=== PATIENT | female | born 1950 | race African-American/Black ===

== ENCOUNTER 2016-11-04 12:13 | Emergency (ER) | payer SELFPAY ==
--- NOTE | 2016-11-04 12:21 | ER Document Report ---
ED Medical Screen (RME) - General Stated Complaint: NOSE BLEED Notes: patient states she had a nosebleed one hour ago, has stopped. she does admit to a headache that started today has a h/o HTN but she is uninsured and does not see a PCP I have greeted and performed a rapid initial assessment of this patient. A comprehensive ED assessment and evaluation of the patient, analysis of test results and completion of the medical decision making process will be conducted by additional ED providers. - Related Data Allergies/Adverse Reactions: acetaminophen [From Tylenol] Allergy (Verified 11/04/16 12:16) Past Medical History - Past Medical History Cardiac Medical History: Reports: Hx Hypertension - Immunizations Hx Diphtheria, Pertussis, Tetanus Vaccination: No
[2016-11-04] MEDS ORDERED: IBUPROFEN 800 MG TABLET PO ONE (13:11)
--- NOTE | 2016-11-04 13:16 | ER Document Report ---
HPI - HPI Patient complains to provider of: nose bleed Onset: This morning Onset/Duration: Sudden Pain Level: 5 Context: Pt presents to the ED with c/o nose bleed pto. She reports she has had this in the past. Once she had to go the ED four times in one day because it would not stop bleeding. She denies injury. Patient reports she sleeps with the window open. Does not use a humidifier. Pt bp elevated. She reports hx of High blood pressure, untreated. She does not have insurance. She reports pressure headache now, no medications taken. Denies f/n/v/d. Patient also admits smoking and drinking tequila weekly. No active nose bleed now. Associated Symptoms: Headache Exacerbated by: Denies Relieved by: Denies Similar symptoms previously: Yes Recently seen / treated by doctor: No - DERM Skin Color: Normal Past Medical History - General Information source: Patient Last Menstrual Period: years- menopause - Social History Smoking Status: Current Every Day Smoker Cigarette use (# per day): Yes - mika Chew tobacco use (# tins/day): No Frequency of alcohol use: Social Drug Abuse: None Occupation: none Lives with: Family Family History: Reviewed & Not Pertinent Patient has suicidal ideation: No Patient has homicidal ideation: No - Past Medical History Cardiac Medical History: Reports: Hx Hypertension Renal/ Medical History: Denies: Hx Peritoneal Dialysis Surgical Hx: Negative - Immunizations Hx Diphtheria, Pertussis, Tetanus Vaccination: No Vertical Provider Document - CONSTITUTIONAL Agree With Documented VS: Yes Exam Limitations: No Limitations General Appearance: WD/WN, No Apparent Distress - INFECTION CONTROL TRAVEL OUTSIDE OF THE [place] IN LAST 30 DAYS: No - HEENT HEENT: Atraumatic, Normocephalic. negative: Conjuctival Injection, Pharyngeal Exudate, Pharyngeal Tenderness, Pharyngeal Erythema, Tympanic Membrane Red, Tympanic Membrane Bulging Notes: right nare with erythema,no active bleeding, no septal hematoma - NECK Neck: Normal Inspection, Supple. negative: Lymphadenopathy-Left, Lymphadenopathy-Right - RESPIRATORY Respiratory: Breath Sounds Normal, No Respiratory Distress O2 Sat by Pulse Oximetry: 96 - CARDIOVASCULAR Cardiovascular: Regular Rate, Regular Rhythm - GI/ABDOMEN Gastrointestinal: Abdomen Soft - MUSCULOSKELETAL/EXTREMETIES Musculoskeletal/Extremeties: ERMA RIZZO - NEURO Level of Consciousness: Awake, Alert, Appropriate Motor/Sensory: No Motor Deficit - DERM Integumentary: Warm, Dry Course - Re-evaluation Re-evalutation: 11/04/16 13:31 Pt instructed on care of nose bleeds. I spent over 15 minutes discussing HTN. Pt was instructed on the [facility], low sodium diet, exercise, quit smoking. Pt was also instructed on the risks of high blood pressure (stroke , [place], etc.) patient verbalized understanding to all instructions. Patient reports she will follow-up with [facility]. Patient also reported that she will quit adding extra seasoning to her foods. - Vital Signs Vital signs: Temp Pulse Resp BP Pulse Ox 98.4 F 88 16 189/92 H 96 11/04/16 12:17 11/04/16 12:17 11/04/16 12:17 11/04/16 12:17 11/04/16 12:17 Discharge - Discharge Clinical Impression: Bleeding nose, Elevated blood pressure reading Condition: Stable Disposition: HOME, SELF-CARE Instructions: High Blood Pressure ([facility]), [facility], Stop Smoking ([facility]) Additional Instructions: *You have been evaluated for nose bleed, elevated blood pressure *Monitor your diet- low sodium, quit smoking ,exercise *Do not blow your nose, humidified air *Take motrin as indicated *Follow up with the [facility] within one week *Return to ED for worsening condition, changes, needs Forms: Smoking Cessation Education, Elevated Blood Pressure
[2016-11-04 13:23] VITALS: BP 192/98
== END 2016-11-04 13:34 | disposition home or self-care (01) ==
LOC: ER 12:13
DX: R04.0 Epistaxis (principal); R03.0 Elevated blood-pressure reading, without diagnosis of hypertension; F17.210 Nicotine dependence, cigarettes, uncomplicated
CPT/HCPCS: 99283

== ENCOUNTER → 2016-11-28 | Outpatient (CLI) | payer OTHER | LOC: WI 14:49 | DX: Z12.31 Encounter for screening mammogram for malignant neoplasm of breast (principal) | CPT/HCPCS: 77067; G0202 ==

== ENCOUNTER 2017-02-13 10:21 | Emergency (ER) | payer SELFPAY ==
[2017-02-13 10:28] VITALS: BP 190/95
[2017-02-13] MEDS ORDERED: PREDNISONE 20 MG TABLET PO ONE (10:47)
[2017-02-13] MEDS ORDERED: DIPHENHYDRAMINE HCL 25 MG CAPSULE PO ONE (10:47)
--- NOTE | 2017-02-13 10:51 | ER Document Report ---
HPI - HPI Patient complains to provider of: skin rash Onset: Other - 7 months Onset/Duration: Waxing and waning Quality of pain: No pain Pain Level: Denies Context: Patient presents complaining of skin rash to face and neck area off and on for the past 7 months. Patient states rash has become constant for the past month. Patient became concerned about the skin rash as she has an upcoming family reunion. Patient denies any new detergents or medications. Patient does states she has been using various topical [id number] medications such as antibiotic cream and attempts to treat her skin rash. Associated Symptoms: Other - skin rash Exacerbated by: Denies Relieved by: Denies Similar symptoms previously: Yes Recently seen / treated by doctor: No - ROS ROS below otherwise negative: Yes Systems Reviewed and Negative: Yes All other systems reviewed and negative - CONSTITUTIONAL Constitutional: DENIES: Fever, Chills - EENT EENT: DENIES: Eye problems - NEURO Neurology: DENIES: Headache - GASTROINTESTINAL Gastrointestinal: DENIES: Nausea, Patient vomiting - DERM Skin Color: Normal Skin Problems: Rash Past Medical History - General Information source: Patient - Social History Smoking Status: Current Every Day Smoker Frequency of alcohol use: Occasional Drug Abuse: None Occupation: none Family History: Reviewed & Not Pertinent Patient has suicidal ideation: No Patient has homicidal ideation: No - Past Medical History Cardiac Medical History: Reports: Hx Hypertension Renal/ Medical History: Denies: Hx Peritoneal Dialysis Surgical Hx: Negative - Immunizations Hx Diphtheria, Pertussis, Tetanus Vaccination: No Vertical Provider Document - CONSTITUTIONAL Agree With Documented VS: Yes Exam Limitations: No Limitations General Appearance: WD/WN, No Apparent Distress - INFECTION CONTROL TRAVEL OUTSIDE OF THE [place] IN LAST 30 DAYS: No - HEENT HEENT: Atraumatic, Normal ENT Exam, Normocephalic Notes: No angioedema - NECK Neck: Normal Inspection, Supple. negative: Lymphadenopathy-Left, Lymphadenopathy-Right - RESPIRATORY Respiratory: Breath Sounds Normal, No Respiratory Distress, Chest Non-Tender O2 Sat by Pulse Oximetry: 98 - CARDIOVASCULAR Cardiovascular: Regular Rate, Regular Rhythm, No Murmur - MUSCULOSKELETAL/EXTREMETIES Musculoskeletal/Extremeties: MAEW - NEURO Level of Consciousness: Awake, Alert, Appropriate Motor/Sensory: No Motor Deficit - DERM Integumentary: Warm, Dry, Rash - Erythematous maculopapular rash distributed to face, neck and upper chest and back area. Course - Re-evaluation Re-evalutation: 02/13/17 10:49 The patient has been informed that they may have pre-hypertension or hypertension based on a blood pressure reading in the emergency department. I recommend that patient call the primary care provider listed on their discharge instructions or a physician of their choice by this week to arrange follow-up for further evaluation of possible pre-hypertension her hypertension. - Vital Signs Vital signs: Temp Pulse Resp BP Pulse Ox 98.1 F 102 H 16 190/95 H 98 02/13/17 10:25 02/13/17 10:25 02/13/17 10:25 02/13/17 10:25 02/13/17 10:25 Discharge - Discharge Clinical Impression: Hx of essential hypertension, Skin rash Condition: Stable Disposition: HOME, SELF-CARE Instructions: Use of Diphenhydramine, Steroid Medication Additional Instructions: Return immediately for any new or worsening symptoms Followup with your primary care provider, call tomorrow to make a followup appointment Follow-up with a steward/stewardess third for further evaluation of facial rash Follow-up with your primary doctor to recheck your blood pressure next week Prescriptions: Prednisone [Deltasone 20 mg Tablet] 3 tab PO DAILY 4 Days Forms: Elevated Blood Pressure Referrals: [facility] [Provider Group] - Follow up as needed STEFAN WILLAMS DO [ACTIVE STAFF] - Follow up in 3-5 days
== END 2017-02-13 11:00 | disposition home or self-care (01) ==
LOC: ER 10:21
DX: R21 Rash and other nonspecific skin eruption (principal); I10 Essential (primary) hypertension; F17.200 Nicotine dependence, unspecified, uncomplicated
CPT/HCPCS: 99282; J7512

== ENCOUNTER 2017-05-08 13:02 | Emergency (ER) | payer MEDICARE ==
[2017-05-08 13:22] VITALS: BP 183/104
[2017-05-08] MEDS ORDERED: TETRACAINE HCL 0.5% OPH SOLN 2 ML OS ONE (14:03)
[2017-05-08] MEDS ORDERED: POLYMYXIN B SULFATE/TMP OPH SOLN (10 ML/ER DISP) OS PRN (14:24)
[2017-05-08] MEDS ORDERED: IBUPROFEN 800 MG TABLET PO ONE (14:24)
--- NOTE | 2017-05-08 14:41 | ER Document Report ---
HPI - HPI Onset: Yesterday Onset/Duration: Gradual Quality of pain: Burning Severity: Moderate Pain Level: 4 Context: Patient states her left eye started out itching yesterday and she has been rubbing it. I is now red and has clear drainage. Patient does not wear contacts. Patient states vision is normal. Exacerbated by: Denies Relieved by: Denies Similar symptoms previously: No Recently seen / treated by doctor: No - ROS ROS below otherwise negative: Yes Systems Reviewed and Negative: Yes All other systems reviewed and negative - CONSTITUTIONAL Constitutional: DENIES: Fever - EENT EENT: REPORTS: Eye problems - Left. DENIES: Congestion - NEURO Neurology: REPORTS: Headache - CARDIOVASCULAR Cardiovascular: DENIES: Chest pain - RESPIRATORY Respiratory: DENIES: Trouble Breathing - GASTROINTESTINAL Gastrointestinal: DENIES: Abdominal Pain - REPRODUCTIVE Reproductive: DENIES: : - MUSCULOSKELETAL Musculoskeletal: DENIES: Extremity pain - DERM Skin Color: Normal Skin Problems: None Past Medical History - General Information source: Patient - Social History Smoking Status: Current Every Day Smoker Chew tobacco use (# tins/day): No Frequency of alcohol use: Occasional Drug Abuse: None Lives with: Spouse/Significant other Family History: Reviewed & Not Pertinent Patient has suicidal ideation: No Patient has homicidal ideation: No - Past Medical History Cardiac Medical History: Reports: Hx Hypertension Past Surgical History: Reports: Hx Herniorrhaphy - Immunizations Hx Diphtheria, Pertussis, Tetanus Vaccination: No Vertical Provider Document - CONSTITUTIONAL Agree With Documented VS: Yes Exam Limitations: No Limitations General Appearance: WD/WN, No Apparent Distress - INFECTION CONTROL TRAVEL OUTSIDE OF THE [place] IN LAST 30 DAYS: No - HEENT HEENT: Atraumatic, Conjuctival Injection, Normal ENT Exam, Normocephalic, PERRLA Notes: Left eye injected without drainage or tearing noted. Small amount of colored drainage noted to right inner eye, conjunctivae clear. - NECK Neck: Normal Inspection - RESPIRATORY Respiratory: Breath Sounds Normal, No Respiratory Distress O2 Sat by Pulse Oximetry: 98 - CARDIOVASCULAR Cardiovascular: Regular Rate, Regular Rhythm - MUSCULOSKELETAL/EXTREMETIES Musculoskeletal/Extremeties: MAEW - NEURO Level of Consciousness: Awake, Alert, Appropriate - DERM Integumentary: Warm, Dry Course - Re-evaluation Re-evalutation: 05/08/17 14:46 Left eye anesthetized with tetracaine. Fluorescein instilled, and was flushed with 5 mL's of normal saline. No foreign body or abrasion noted. Patient tolerated procedure well - Vital Signs Vital signs: Temp Pulse Resp BP Pulse Ox 97.9 F 76 16 183/104 H 98 05/08/17 13:21 05/08/17 13:21 05/08/17 13:21 05/08/17 13:21 05/08/17 13:21 Discharge - Discharge Clinical Impression: Conjunctivitis, left eye Qualifiers: Conjunctivitis type: unspecified Qualified Code(s): H10.9 - Unspecified conjunctivitis Condition: Good Disposition: HOME, SELF-CARE Instructions: Antibiotic Therapy ([facility]), Conjunctivitis ([facility]), Eyedrop Use ([facility]) Additional Instructions: Use drops as directed Do not rub eye Follow-up with your primary care doctor this week for recheck or your eye doctor Return if worsens and as needed
== END 2017-05-08 14:50 | disposition home or self-care (01) ==
LOC: ER 13:02
DX: H10.9 Unspecified conjunctivitis (principal); F17.200 Nicotine dependence, unspecified, uncomplicated; I10 Essential (primary) hypertension
CPT/HCPCS: 99283; A9270; J3490

== ENCOUNTER 2017-11-13 09:28 | Emergency (ER) | payer MEDICARE ==
[2017-11-13] MEDS ORDERED: FENTANYL CITRATE INJ/PF 100 MCG/2 ML AMPUL IV ONE (10:21)
--- NOTE | 2017-11-13 10:23 | ER Document Report ---
ED Medical Screen (RME) - General Chief Complaint: Shoulder Pain Stated Complaint: SHOULDER PAIN Time Seen by Provider: 11/13/17 10:15 Notes: RME DISCLOSURE I have seen this patient as part of a Rapid Medical Evaluation and, if applicable, placed any initially appropriate orders. The patient will be seen and fully evaluated, including a full history and physical exam, by a provider ( in Main ED or Fast Track) when a room becomes available. 67-year-old female PMH hypertension here with complaints of left shoulder pain that started 1-2 days ago. She also has some shortness of breath however states that it is the same shortness of breath she has had for years and is not any different. She denies any chest pain or discomfort. The shoulder pain is worse with deep breathing and also with moving her left upper extremity. She has no prior history of PE or DVT. She does not currently feel nervous or anxious and states that her heart rate is not usually high. EXAM Tachycardic low 100s TRAVEL OUTSIDE OF THE [place] IN LAST 30 DAYS: No - Related Data Allergies/Adverse Reactions: acetaminophen [From Tylenol] Allergy (Verified 11/13/17 09:30) Past Medical History - Past Medical History Cardiac Medical History: Reports: Hx Hypertension Renal/ Medical History: Denies: Hx Peritoneal Dialysis Past Surgical History: Reports: Hx Herniorrhaphy - Immunizations Hx Diphtheria, Pertussis, Tetanus Vaccination: No Physical Exam - Vital signs Vitals: Temp Pulse Resp BP Pulse Ox 98.4 F 103 H 20 157/84 H 97 11/13/17 09:34 11/13/17 09:34 11/13/17 09:34 11/13/17 09:34 11/13/17 09:34 Course - Vital Signs Vital signs: Temp Pulse Resp BP Pulse Ox 98.4 F 103 H 20 157/84 H 97 11/13/17 09:34 11/13/17 09:34 11/13/17 09:34 11/13/17 09:34 11/13/17 09:34
--- NOTE | 2017-11-13 11:33 | ER Document Report ---
ED Extremity Problem, Upper - General Mode of Arrival: Ambulatory Information source: Patient TRAVEL OUTSIDE OF THE [place] IN LAST 30 DAYS: No - General Chief Complaint: Shoulder Pain Stated Complaint: SHOULDER PAIN Time Seen by Provider: 11/13/17 10:15 Notes: Patient is a 67-year-old female that presents to the emergency department today with left shoulder pain for the last 2 days. Patient states she did not fall or have any trauma to her knowledge to cause this pain however she did "drink a lot of tequila" the night before this pain began. Patient has shoulder pain at rest but the pain is exacerbated with movement of left shoulder. Patient describes the pain as "sharp shooting" down her arm. Patient also mentions she has noticed left hand and wrist swelling but there is no pain associated with that. Patient denies any shortness of breath, history of NV/CVA, history of PE/ DVT, chest pain, leg swelling, or fall/trauma. (GRACIELA MANCILLA) - Related Data Allergies/Adverse Reactions: acetaminophen [From Tylenol] Allergy (Verified 11/17/17 17:07) Past Medical History - General Information source: Patient - Social History Smoking Status: Current Every Day Smoker Cigarette use (# per day): Yes Chew tobacco use (# tins/day): No Frequency of alcohol use: Occasional Drug Abuse: None Lives with: Family Family History: Reviewed & Not Pertinent Patient has suicidal ideation: No Patient has homicidal ideation: No - Past Medical History Cardiac Medical History: Reports: Hx Hypertension Past Surgical History: Reports: Hx Herniorrhaphy - Immunizations Hx Diphtheria, Pertussis, Tetanus Vaccination: No Review of Systems - Review of Systems Constitutional: No symptoms reported EENT: No symptoms reported Cardiovascular: denies: Chest pain Respiratory: denies: Cough, Short of breath Gastrointestinal: No symptoms reported Genitourinary: No symptoms reported Female Genitourinary: No symptoms reported Musculoskeletal: See HPI, Joint pain - left shoulder. denies: Leg swelling Skin: No symptoms reported Hematologic/Lymphatic: No symptoms reported Neurological/Psychological: No symptoms reported -: Yes All other systems reviewed and negative Physical Exam - Vital signs Vitals: Temp Pulse Resp BP Pulse Ox 98.4 F 103 H 20 157/84 H 97 11/13/17 09:34 11/13/17 09:34 11/13/17 09:34 11/13/17 09:34 11/13/17 09:34 - Notes Notes: Physical Exam: General: Alert, appears well. HEENT: Normocephalic. Atraumatic. PERRL. Extraocular movements intact. Oropharynx clear. Neck: Supple. Non-tender. Respiratory: No respiratory distress. Clear and equal breath sounds bilaterally. Cardiovascular: Regular rate and rhythm. Abdominal: Normal Inspection. Non-tender. No distension. Normal Bowel Sounds. Back: Non-tender. No deformity or step off. Extremities: Moves all four extremities. Upper extremities: Limited ROM of left shoulder secondary to pain. Pain with palpation of entire left shoulder joint, no crepitus. No hand/wrist tenderness with palpation. Mild left soft tissue swelling over left hand/wrist, no erythema. 2+ radial pulses. Normal axilla. Lower extremities: Normal inspection. No edema. Normal ROM. Neurological: Normal cognition. AAOx4. Normal speech. Psychological: Normal affect. Normal Mood. Skin: Warm. Dry. Normal color. (GRACIELA MANCILLA) Course - Re-evaluation Re-evalutation: 11/13/17 11:37 Patient well-appearing states that her pain began after awakening 2 days ago after having large amounts of alcohol at a green party the night before. Denies any traumas or falls. She does have very minor swelling of her distal right upper extremity compared to left otherwise no other concerning physical findings. Patient denies any chest pain or shortness of breath at this time. Her pain is reproducible with movement and it is better with rest. Due to the moderate soft tissue swelling will obtain ultrasound of right upper extremity to rule out any blood clots. No signs of infectious signs or symptoms. We will also perform an x-ray of right upper extremity shoulder as she has reproducible pain with palpation of the right upper extremity shoulder and with movement actively and passively. 11/13/17 13:27 Study negative for DVT with calcific tendinitis on shoulder x-ray otherwise no acute findings. Patient was discharged with sling for support and anti- inflammatories. Discussed range of motion exercises daily as well as follow-up with her primary care physician 1 week for reevaluation. Return precautions provided (LONG,NICKIE H) - Vital Signs Vital signs: Temp Pulse Resp BP Pulse Ox 98.0 F 107 H 17 149/81 H 97 11/13/17 13:38 11/13/17 13:38 11/13/17 13:38 11/13/17 13:38 11/13/17 13:38 Discharge - Discharge Clinical Impression: Shoulder pain, left Qualifiers: Chronicity: unspecified Qualified Code(s): M25.512 - Pain in left shoulder Condition: Good Disposition: HOME, SELF-CARE Instructions: Exercise Program for the Shoulder ([facility]), Shoulder Injury ([facility]), Sling to be Used ([facility]) Additional Instructions: Please follow-up with your primary care provider in 1 week for reevaluation. You may need physical therapy if symptoms are continuing. Prescriptions: Naproxen 500 mg PO BID PRN #30 tablet PRN Reason: Scribe Attestation: 11/19/17 07:01 I personally performed the services described in the documentation, reviewed and edited the documentation which was dictated to the scribe in my presence, and it accurately records my words and actions. (NICKIE ACHARYA) Scribe Documentation - Scribe Written by Rizwan:: Rizwan Drake, 11/13/2017 1133 acting as scribe for :: Gideon
[2017-11-13] MEDS ORDERED: KETOROLAC TROMETHAMINE 60 MG/2 ML SDV IM ONE (11:34)
--- NOTE | 2017-11-13 12:00 | RADIOLOGY REPORT (SQ) ---
EXAM DESCRIPTION: SHOULDER LEFT 2 OR MORE VIEWS COMPLETED DATE/TIME: 11/13/2017 11:45 am REASON FOR STUDY: shoulder pain COMPARISON: None. NUMBER OF VIEWS: Four views. TECHNIQUE: Internal rotation, external rotation, Y view and transscapular images acquired of the left shoulder. LIMITATIONS: None. FINDINGS: MINERALIZATION: Normal. BONES: No acute fracture or dislocation. No worrisome bone lesions. JOINTS: No dislocation. VISUALIZED LUNGS AND RIBS: No pneumothorax. No rib fracture. SOFT TISSUES: Calcification within the biceps tendon. OTHER: No other significant finding. IMPRESSION: No bony abnormality. Calcification within the biceps tendon is that may be associated w ith biceps tendonitis. TECHNICAL DOCUMENTATION: JOB ID: [id number] [employer]- All Rights Reserved Reading location - IP/workstation name: [email or web address]
--- NOTE | 2017-11-13 13:25 | EKG REPORT ---
SEVERITY:- BORDERLINE ECG - SINUS RHYTHM NONSPECIFIC ST-T CHANGES- INFERIOR LEADS : Confirmed by: Sylvain Daniel MD 13-Nov-2017 13:24:07
[2017-11-13 13:39] VITALS: BP 149/81
--- NOTE | 2017-11-13 13:58 | RADIOLOGY REPORT (SQ) ---
EXAM DESCRIPTION: VENOUS UNILATERAL UPPER COMPLETED DATE/TIME: 11/13/2017 1:22 pm REASON FOR STUDY: LUE SWELLING COMPARISON: None. TECHNIQUE: Dynamic and static reed scale and color images acquired of the left arm venous system. Se lected spectral images acquired with additional compression and augmentation maneuvers. The contralat eral subclavian vein and internal jugular vein were also imaged. Images stored on PACS. LIMITATIONS: None. FINDINGS: INTERNAL JUGULAR VEIN: Normal phasicity, compression, augmentation. No visualized echogeni c material on reed scale. No defects on color images. Comparison opposite side normal. SUBCLAVIAN VEIN: Normal compression, augmentation. No visualized echogenic material on reed scale. No defects on color images. AXILLARY VEIN: Normal compression, augmentation. No visualized echogenic material on reed scale. No d efects on color images. BRACHIAL VEIN: Normal compression, augmentation. No visualized echogenic material on reed scale. No d efects on color images. BASILIC VEIN: Normal compression, augmentation. No visualized echogenic material on reed scale. No de fects on color images. CEPHALIC VEIN: Normal compression, augmentation. No visualized echogenic material on reed scale. No d efects on color images. OTHER: No other significant finding. CONTRALATERAL SUBCLAVIAN VEIN AND INTERNAL JUGULAR VEIN: Normal phasicity, compression and augmentation. No visualized echogenic material on reed scale. No de fects on color images. IMPRESSION: NO EVIDENCE DVT OR SVT IN THE LEFT ARM. TECHNICAL DOCUMENTATION: JOB ID: [id number] [employer]- All Rights Reserved Reading location - IP/workstation name: [email or web address]
== END 2017-11-13 13:56 | disposition home or self-care (01) ==
LOC: ER 09:28
DX: M25.511 Pain in right shoulder (principal); M79.89 Other specified soft tissue disorders; I10 Essential (primary) hypertension; F17.210 Nicotine dependence, cigarettes, uncomplicated; Z88.6 Allergy status to analgesic agent
CPT/HCPCS: 93005; 99284; 96372; 93971; 73030; 93010; J1885

== ENCOUNTER 2017-11-17 16:57 | Emergency (ER) | payer MEDICARE ==
--- NOTE | 2017-11-17 17:10 | ER Document Report ---
HPI - HPI Patient complains to provider of: Left back and leg pain Onset: This morning Pain Level: 5 Context: 67-year-old HTN, smoker, female called the ambulance because of left back hip and leg pain that started this morning. She was seen in the emergency room several days ago and treated with Naprosyn for left shoulder pain which has improved. She thinks she has "a cold" in her leg. No Fever or chills. No chest pain or shortness of breath. No abdominal pain. No nausea vomiting or diarrhea. No injury. EKG order was put in by pivot nurse on accident. No saddle anesthesia. Associated Symptoms: None Exacerbated by: Movement Relieved by: Denies Similar symptoms previously: No Recently seen / treated by doctor: No - ROS ROS below otherwise negative: Yes Systems Reviewed and Negative: Yes All other systems reviewed and negative - REPRODUCTIVE Reproductive: DENIES: : Past Medical History - General Information source: Patient - Social History Smoking Status: Current Every Day Smoker Frequency of alcohol use: None Drug Abuse: None Lives with: Spouse/Significant other Family History: Reviewed & Not Pertinent - Past Medical History Cardiac Medical History: Reports: Hx Hypertension Renal/ Medical History: Denies: Hx Peritoneal Dialysis Past Surgical History: Reports: Hx Herniorrhaphy - Immunizations Hx Diphtheria, Pertussis, Tetanus Vaccination: No Vertical Provider Document - CONSTITUTIONAL Agree With Documented VS: Yes Exam Limitations: No Limitations Notes: dramatic non verbals about the pain, rocking, moaning, rubbing anterior left thigh - INFECTION CONTROL TRAVEL OUTSIDE OF THE [place] IN LAST 30 DAYS: No - HEENT HEENT: Normocephalic - NECK Neck: Supple - RESPIRATORY Respiratory: Breath Sounds Normal, No Respiratory Distress - CARDIOVASCULAR Cardiovascular: Regular Rate, Regular Rhythm Course - Re-evaluation Re-evalutation: 11/17/17 19:23 Lumbar and hip degenerative changes, no acute changes pt pain level almost 0. Will refer to pocket operator but she will need to go to [facility] again - Vital Signs Vital signs: Temp Pulse Resp BP Pulse Ox 98.3 F 88 16 184/93 H 99 11/17/17 17:02 11/17/17 17:02 11/17/17 17:02 11/17/17 17:02 11/17/17 17:02 Discharge - Discharge Clinical Impression: degenerative hip and lumbar spine Condition: Good Disposition: HOME, SELF-CARE Instructions: Anti-Inflammatory Medication ([facility]), Arthritis ([facility]), Warm Packs ( [facility]) Additional Instructions: continue the naprosyn 500mg twice a day warm compress see [facility] for follow up see pocket operator for follow up to er if worse Referrals: NICKIE LUDWIG MD [ACTIVE STAFF] - Follow up as needed
[2017-11-17] MEDS ORDERED: MORPHINE SULFATE 10 MG/ML INJ IV ONE (18:11)
[2017-11-17] MEDS ORDERED: ONDANSETRON 4 MG TAB.RAPDIS PO ONE (18:11)
[2017-11-17] MEDS ORDERED: MORPHINE SULFATE 10 MG/ML INJ IM ONE (18:16)
--- NOTE | 2017-11-17 19:09 | RADIOLOGY REPORT (SQ) ---
EXAM DESCRIPTION: L SPINE WHOLE COMPLETED DATE/TIME: 11/17/2017 6:43 pm REASON FOR STUDY: pain COMPARISON: None. NUMBER OF VIEWS: Five views including obliques. TECHNIQUE: AP, lateral, oblique, and sacral radiographic images acquired of the lumbar spine. LIMITATIONS: None. FINDINGS: MINERALIZATION: Normal. SEGMENTATION: Normal. No transitional anatomy. ALIGNMENT: Normal. VERTEBRAE: Maintained height. No fracture or worrisome bone lesion. DISCS: Multilevel disc space narrowing with osteophytes. POSTERIOR ELEMENTS: Pedicles and facets are intact. No pars defect or posterior arch defects. Facet arthropathy is present. HARDWARE: None in the spine. PARASPINAL SOFT TISSUES: Normal. PELVIS: Intact as visualized. No fractures or worrisome bone lesions. SI joints intact. OTHER: No other significant finding. IMPRESSION: SPONDYLOSIS WITHOUT BONE LESION OR FRACTURE. TECHNICAL DOCUMENTATION: JOB ID: [id number] [employer]- All Rights Reserved Reading location - IP/workstation name: [email or web address]
--- NOTE | 2017-11-17 19:10 | RADIOLOGY REPORT (SQ) ---
EXAM DESCRIPTION: HIP LEFT AP/LATERAL COMPLETED DATE/TIME: 11/17/2017 6:43 pm REASON FOR STUDY: pain COMPARISON: None. NUMBER OF VIEWS: Two views. TECHNIQUE: AP pelvis and additional frog-leg view of the left hip. LIMITATIONS: None. FINDINGS: MINERALIZATION: Normal. LEFT HIP: No fracture or dislocation. No worrisome bone lesions. Background of degenerative changes . RIGHT HIP: No fracture or dislocation. No worrisome bone lesions. Background of degenerative change s. PUBIS AND ISCHIUM: No fracture. PELVIS: No fracture. SACRUM: No fracture or dislocation. No worrisome bone lesions. LOWER LUMBAR SPINE: No fracture or dislocation. No worrisome bone lesions. Spondylotic changes are p resent. SOFT TISSUES: No findings. OTHER: No other significant finding. IMPRESSION: No evidence of acute osseous injury. Background hip and spine degenerative changes. TECHNICAL DOCUMENTATION: JOB ID: [id number] [employer]- All Rights Reserved Reading location - IP/workstation name: [email or web address]
[2017-11-17 19:47] VITALS: BP 167/89
== END 2017-11-17 19:47 | disposition home or self-care (01) ==
LOC: ER 16:57
DX: M16.12 Unilateral primary osteoarthritis, left hip (principal); M47.9 Spondylosis, unspecified; I10 Essential (primary) hypertension; F17.200 Nicotine dependence, unspecified, uncomplicated
CPT/HCPCS: 99284; 96372; 73502; 72110; A9270; J2270; S0119

== ENCOUNTER 2018-02-19 11:56 | Emergency (ER) | payer MEDICARE ==
--- NOTE | 2018-02-19 13:07 | ER Document Report ---
ED General - General Chief Complaint: Dizziness Stated Complaint: BLOOD PRESSURE ISSUES Time Seen by Provider: 02/19/18 12:53 Mode of Arrival: Ambulatory Information source: Patient Notes: 67-year-old female presents with complaints of hypertension. Patient notes that she now has Medicare [facility]man clinic would not see her to refill her blood pressure medications when she went, she has been on blood pressure medications for possibly 5 days. Patient is on benazepril and amlodipine TRAVEL OUTSIDE OF THE [place] IN LAST 30 DAYS: No - HPI Onset: Last week Onset/Duration: Persistent Quality of pain: Achy Severity: Mild Pain Level: 1 Associated symptoms: Headache Exacerbated by: Denies Relieved by: Denies Similar symptoms previously: No Recently seen / treated by doctor: Yes - Related Data Allergies/Adverse Reactions: acetaminophen [From Tylenol] Allergy (Verified 02/19/18 11:58) Past Medical History - Social History Smoking Status: Current Every Day Smoker Cigarette use (# per day): Yes Chew tobacco use (# tins/day): No Smoking Education Provided: No Frequency of alcohol use: Occasional Drug Abuse: None Family History: Reviewed & Not Pertinent Patient has suicidal ideation: No Patient has homicidal ideation: No - Past Medical History Cardiac Medical History: Reports: Hx Hypertension Renal/ Medical History: Denies: Hx Peritoneal Dialysis Past Surgical History: Reports: Hx Herniorrhaphy - Immunizations Hx Diphtheria, Pertussis, Tetanus Vaccination: No Review of Systems - Review of Systems Notes: REVIEW OF SYSTEMS: CONSTITUTIONAL : Denies fever, chills, or sweats. Denies recent illness. EENT: Denies eye, ear, throat, or mouth pain or symptoms. Denies nasal or sinus congestion or discharge. Denies throat, tongue, or mouth swelling or difficulty swallowing. CARDIOVASCULAR: Denies chest pain. Denies palpitations or racing or irregular heart beat. Denies ankle edema. RESPIRATORY: Denies cough, cold, or chest congestion. Denies shortness of breath, difficulty breathing, or wheezing. GASTROINTESTINAL: Denies abdominal pain or distention. Denies nausea, vomiting , or diarrhea. Denies blood in vomitus, stools, or per rectum. Denies black, tarry stools. Denies constipation. GENITOURINARY: Denies difficulty urinating, painful urination, burning, frequency, blood in urine, or discharge. FEMALE GENITOURINARY: Denies vaginal bleeding, heavy or abnormal periods, irregular periods. Denies vaginal discharge or odor. MUSCULOSKELETAL: Denies back or neck pain or stiffness. Denies joint pain or swelling. SKIN: Denies rash, lesions or sores. HEMATOLOGIC : Denies easy bruising or bleeding. LYMPHATIC: Denies swollen, enlarged glands. NEUROLOGICAL: Admits to mild headache PSYCHIATRIC: Denies anxiety or stress. Denies depression, suicidal ideation, or homicidal ideation. ALL OTHER SYSTEMS REVIEWED AND NEGATIVE. PHYSICAL EXAMINATION: GENERAL: Well-appearing, well-nourished and in no acute distress. HEAD: Atraumatic, normocephalic. EYES: Pupils equal round and reactive to light, extraocular movements intact, conjunctiva are normal. ENT: Nares patent, oropharynx clear without exudates. Moist mucous membranes. NECK: Normal range of motion, supple without lymphadenopathy LUNGS: Breath sounds clear to auscultation bilaterally and equal. No wheezes rales or rhonchi. HEART: Regular rate and rhythm without murmurs ABDOMEN: Soft, nontender, nondistended abdomen. No guarding, no rebound. No masses appreciated. Female : deferred Musculoskeletal: Normal range of motion, no pitting or edema. No cyanosis. NEUROLOGICAL: Cranial nerves grossly intact. Normal speech, normal gait. Normal sensory, motor exams PSYCH: Normal mood, normal affect. SKIN: Warm, Dry, normal turgor, no rashes or lesions noted. Dictation was performed using [employer] voice recognition software Physical Exam - Vital signs Vitals: Temp Pulse Resp BP Pulse Ox 98.7 F 100 16 173/90 H 100 02/19/18 12:12 02/19/18 12:12 02/19/18 12:12 02/19/18 12:12 02/19/18 12:12 Course - Re-evaluation Re-evalutation: 02/19/18 13:07 CT head lab work pending I will otherwise refill her medications 02/19/18 14:21 Lab work imaging notes no significant abnormality, patient overall looks well in no distress We will start the patient back on her medication After performing a Medical Screening Examination, I estimate there is LOW risk for INTRACRANIAL HEMORRHAGE, ISCHEMIC CVA, MALIGNANT DYSRHYTHMIA, ACUTE CORONARY SYNDROME, MENINGITIS, PULMONARY EMBOLISM, or SEPSIS thus I consider the discharge disposition reasonable. I have reevaluated this patient multiple times and no significant life threatening changes are noted. The patient and I have discussed the diagnosis and risks, and we agree with discharging home with close follow-up with the understanding that symptoms and presentations can change. We also discussed returning to the Emergency Department immediately if new or worsening symptoms occur. We have discussed the symptoms which are most concerning (e.g., changing or worsening pain, weakness, vomiting, fever) that necessitate immediate return. - Vital Signs Vital signs: Temp Pulse Resp BP Pulse Ox 98.7 F 100 16 173/90 H 100 02/19/18 12:12 02/19/18 12:12 02/19/18 12:12 02/19/18 12:12 02/19/18 12:12 - Laboratory Result Diagrams: 02/19/18 13:32 02/19/18 13:32 Laboratory results interpreted by me: 02/19/18 02/19/18 02/19/18 13:32 13:32 13:32 RDW 14.8 H Sodium 146.2 H Total Protein 8.3 H Urine Urobilinogen 2.0 H - Diagnostic Test Radiology reviewed: Image reviewed, Reports reviewed Discharge - Discharge Clinical Impression: HTN (hypertension) Qualifiers: Hypertension type: essential hypertension Qualified Code(s): I10 - Essential ( primary) hypertension Condition: Stable Disposition: HOME, SELF-CARE Instructions: Dizziness ([facility]) Additional Instructions: Follow up with your physician tomorrow for further care or return to the ED IMMEDIATELY if symptoms worsen or new concerns occur. If you cannot afford to follow up with your primary care physician a list of low cost clinics have been provided at the end of your discharge papers as well. Prescriptions: Amlodipine Besylate 2.5 mg PO DAILY #30 tab Benazepril HCl 10 mg PO DAILY #30 tablet
[2018-02-19 13:52] LABS: ABSOLUTE BASOPHILS # (AUTO) 0.1 10^3/uL (0.0-0.2); ABSOLUTE LYMPHOCYTES (AUTO) 2.2 10^3/uL (0.5-4.7); ABSOLUTE MONOCYTES (AUTO) 0.5 10^3/uL (0.1-1.4); ABSOLUTE NEUT (AUTO) 2.8 10^3/uL (1.7-8.2); BASOPHILS % (AUTO) 1.3 % (0-2); EOSINOPHILS % (AUTO) 0.7 % (0-6); HEMATOCRIT 36.7 % (36.0-47.0); HEMOGLOBIN 12.3 g/dL (12.0-15.5); MEAN CORPUSCULAR HEMOGLOBIN 32.3 pg (27.0-33.4); MEAN CORPUSCULAR HGB CONC 33.5 g/dL (32.0-36.0); MEAN CORPUSCULAR VOLUME 97 fl (80-97); PLATELET COUNT 321 10^3/uL (150-450); RED CELL DISTRIBUTION WIDTH 14.8 % (11.5-14.0); TOTAL CELLS COUNTED % (AUTO) 100 %; WHITE BLOOD COUNT 5.6 10^3/uL (4.0-10.5)
[2018-02-19 14:13] LABS: APPEARANCE,URINE SLIGHTLY-CLOUDY; BILIRUBIN,URINE NEGATIVE (NEGATIVE); COLOR,URINE YELLOW; GLUCOSE, URINE NEGATIVE (NEGATIVE); KETONES,URINE NEGATIVE (NEGATIVE); LEUKOCYTE ESTERASE,URINE NEGATIVE (NEGATIVE); NITRITE,URINE NEGATIVE (NEGATIVE); PROTEIN,URINE NEGATIVE (NEGATIVE); URINE SPECIFIC GRAVITY 1.027
[2018-02-19 14:14] LABS: ALBUMIN 4.6 g/dL (3.5-5.0); GLUCOSE 106 mg/dL (75-110); POTASSIUM 4.1 mmol/L (3.6-5.0); TOTAL PROTEIN 8.3 g/dL (6.3-8.2)
[2018-02-19 14:15] LABS: ALANINE AMINOTRANSFERASE 35 U/L (9-52); ALKALINE PHOSPHATASE 90 U/L (38-126); ANION GAP 15 (5-19); ASPARTATE AMINO TRANSFERASE 24 U/L (14-36); BILIRUBIN,DIRECT 0.3 mg/dL (0.0-0.4); BILIRUBIN,TOTAL 0.5 mg/dL (0.2-1.3); BLOOD UREA NITROGEN 20 mg/dL (7-20); CALCIUM 9.9 mg/dL (8.4-10.2); CARBON DIOXIDE 26 mmol/L (22-30); CHLORIDE 105 mmol/L (98-107); SODIUM 146.2 mmol/L (137-145)
--- NOTE | 2018-02-19 14:15 | RADIOLOGY REPORT (SQ) ---
EXAM DESCRIPTION: CT HEAD WITHOUT COMPLETED DATE/TIME: 02/19/2018 2:00 pm REASON FOR STUDY: headache htn COMPARISON: None. TECHNIQUE: Axial images acquired through the brain without intravenous contrast. Images reviewed wi th bone, brain and subdural windows. Additional sagittal and coronal reconstructions were generated. Images stored on PACS. All CT scanners at this facility use dose modulation, iterative reconstruction, and/or weight based d osing when appropriate to reduce radiation dose to as low as reasonably achievable (ALARA). [facility]: Dose Right [facility]: CareDose [facility]: Dose Right [facility]: Teradose 4D [facility]: [email or web address] RADIATION DOSE: CT Rad equipment meets quality standard of care and radiation dose reduction techniq ues were employed. CTDIvol: 53.2 mGy. DLP: 1097 mGy-cm. mGy. LIMITATIONS: Streak artifact from right-sided earrings FINDINGS: VENTRICLES: Normal size and contour. CEREBRUM: No masses. No hemorrhage. No midline shift. No evidence for acute infarction. Normal gra y/white matter differentiation. No areas of low density in the white matter. Bilateral basal ganglia perivascular spaces, benign CEREBELLUM: No masses. No hemorrhage. No alteration of density. No evidence for acute infarction. EXTRAAXIAL SPACES: No fluid collections. No masses. ORBITS AND GLOBE: No intra- or extraconal masses. Normal contour of globe without masses. CALVARIUM: No fracture. PARANASAL SINUSES: No fluid or mucosal thickening. SOFT TISSUES: No mass or hematoma. OTHER: No other significant finding. IMPRESSION: NORMAL BRAIN CT WITHOUT CONTRAST. EVIDENCE OF ACUTE STROKE: NO. COMMENT: Quality ID # [id number]: Final reports with documentation of one or more dose reduction techniques (e.g., Automated exposure control, adjustment of the mA and/or kV according to patient size, use of iterative reconstruction technique) TECHNICAL DOCUMENTATION: JOB ID: [id number] [employer]- All Rights Reserved Reading location - IP/workstation name: [email or web address]
[2018-02-19 14:37] VITALS: BP 185/82
== END 2018-02-19 14:32 | disposition home or self-care (01) ==
LOC: ER 11:56
DX: I10 Essential (primary) hypertension (principal); R42 Dizziness and giddiness; F17.210 Nicotine dependence, cigarettes, uncomplicated; Z88.6 Allergy status to analgesic agent
CPT/HCPCS: 36415; 70450; 80053; 81001; 85025; 99284

== ENCOUNTER 2019-08-24 19:25 | Emergency (ER) | payer MEDICARE ==
[2019-08-24] MEDS ORDERED: DEXAMETHASONE SOD PHOS INJ 10 MG/1 ML VIAL IM ONE (20:25)
[2019-08-24] MEDS ORDERED: RACEPINEPHRINE HCL 2.25% NEB 0.5 ML AMPUL NEB ONE ×2 (20:29→21:44)
--- NOTE | 2019-08-24 20:31 | ER Document Report ---
ED Medical Screen (RME) - General Chief Complaint: Breathing Difficulty Stated Complaint: SHORTNESS OF BREATH Time Seen by Provider: 08/24/19 20:21 Notes: Patient is a 69-year-old female who presents to the emergency department with a chief complaint of upper respiratory wheezing. Her symptoms started about 2 hours ago. Denies any new exposures to anything. Exam: Expiratory wheezes noted to neck area. Breath sounds clear. Patient will receive Decadron and racemic epi. X-rays will be taken to eval for epiglottitis. I have greeted and performed a rapid initial assessment of this patient. A comprehensive ED assessment and evaluation of the patient, analysis of test results and completion of medical decision making process will be conducted by an additional ED providers. TRAVEL OUTSIDE OF THE [place] IN LAST 30 DAYS: No - Related Data Allergies/Adverse Reactions: acetaminophen [From Tylenol] Allergy (Verified 02/19/18 11:58) Home Medications: bp pill, fluid pill Past Medical History - Past Medical History Cardiac Medical History: Reports: Hx Hypertension Renal/ Medical History: Denies: Hx Peritoneal Dialysis Past Surgical History: Reports: Hx Herniorrhaphy - Immunizations Hx Diphtheria, Pertussis, Tetanus Vaccination: No Physical Exam - Vital signs Vitals: Temp Pulse Resp BP Pulse Ox 97.5 F 95 24 H 164/87 H 99 08/24/19 19:30 08/24/19 19:30 08/24/19 19:30 08/24/19 19:30 08/24/19 19:30 Course - Vital Signs Vital signs: Temp Pulse Resp BP Pulse Ox 97.5 F 95 24 H 164/87 H 99 08/24/19 19:30 08/24/19 19:30 08/24/19 19:30 08/24/19 19:30 08/24/19 19:30
--- NOTE | 2019-08-24 21:18 | RADIOLOGY REPORT (SQ) ---
EXAM DESCRIPTION: XR NECK SOFT TISSUE COMPLETED DATE/TME: 08/24/2019 20:37 CLINICAL HISTORY: 69 years, Female, eval epiglottitis COMPARISON: None. NUMBER OF VIEWS: Two TECHNIQUE: Frontal and lateral radiographs were obtained LIMITATIONS: Lateral projection is limited secondary to motion artifact. FINDINGS: Mild multilevel cervical spondylosis is evident, designated by intervertebral space narrowing and hypertrophic endplate spurring. This is most pronounced at C5-C6. There is also mild retrolisthesis of C5 upon C6. No prevertebral soft tissue swelling. Epiglottis appears normal. The adenoid and lingual tonsils do not appear significantly enlarged. Calcifications are evident about the bilateral carotid vasculature. Visualized lung apices are clear. IMPRESSION: No acute radiographic abnormality. Specifically, the epiglottis does not appear significantly enlarged. copyright 2010 [employer]- All Rights Reserved
--- NOTE | 2019-08-24 21:52 | ER Document Report ---
ED General - General Chief Complaint: Breathing Difficulty Stated Complaint: SHORTNESS OF BREATH Time Seen by Provider: 08/24/19 20:21 Primary Care Provider: LISA URRUTIA MD [Primary Care Provider] - Follow up as needed TRAVEL OUTSIDE OF THE [place] IN LAST 30 DAYS: No - Related Data Allergies/Adverse Reactions: acetaminophen [From Tylenol] Allergy (Verified 02/19/18 11:58) Home Medications: bp pill, fluid pill Past Medical History - Social History Smoking Status: Current Every Day Smoker Family History: Reviewed & Not Pertinent Patient has suicidal ideation: No Patient has homicidal ideation: No - Past Medical History Cardiac Medical History: Reports: Hx Hypertension Renal/ Medical History: Denies: Hx Peritoneal Dialysis Past Surgical History: Reports: Hx Herniorrhaphy - Immunizations Hx Diphtheria, Pertussis, Tetanus Vaccination: No Physical Exam - Vital signs Vitals: Temp Pulse Resp BP Pulse Ox 97.5 F 95 24 H 164/87 H 99 08/24/19 19:30 08/24/19 19:30 08/24/19 19:30 08/24/19 19:30 08/24/19 19:30 - Notes Notes: Presents emerged [place] of shortness of breath and gone for the past couple hours. Little bit of a sore throat with this. No fevers cough chest pain or dysphagia. There is no contact history obtainable. She said no rashes or itching at all. She is been on current antihypertensives for a while she denies any change in her voice choking episode or previous history of wheezing. Past medical history significant for hypertension no diabetes or heart disease Social history she does smoke and drink Review of systems pertinent positives and negatives in HPI otherwise all the systems were reviewed and acutely negative PHYSICIAN EXAM -vital signs are noted triage note and note from triage reviewed GENERAL: Well-appearing, well-nourished and in _no acute distress ____ HEAD: Atraumatic, normocephalic. EYES: Pupils equal round and reactive to light, extraocular movements intact, sclera anicteric, conjunctiva are normal. ENT: nares patent, oropharynx clear without exudates. The uvula is midline there is no trismus is handling secretions well no swelling of the tongue face lips or in the sublingual area normal voice. No hot potato voice. Some minimal tenderness of the trachea moist mucous membranes. There are some expiratory wheezes which he says is worse after treatment NECK: supple without lymphadenopathy LUNGS: Breath sounds clear to auscultation bilaterally and equal. There are few wheezes in the upper lobes HEART: Regular rate and rhythm without murmurs ABDOMEN: Soft, nontender, normoactive bowel sounds. EXTREMITIES: No deformity, no edema. No palpable cords NEUROLOGICAL: No focal neurological deficits. Moves all extremities spontaneously and on command. PSYCH: Normal mood, normal affect. SKIN: Warm, Dry, normal turgor, no rashes or lesions noted. BACK-nontender in the midline Differential diagnosis includes tracheitis upper respiratory infection epiglottitis bronchitis allergic reaction Course - Re-evaluation Re-evalutation: 08/24/19 22:35 ED waiting the patient advised that we will give her another treatment and get some blood work but there is some pulmonary says patient wants to leave AMA. I went to discuss the case with the patient. She says is hungry and wants to eat. Advised we could give her some ice chips or thousand 3 with some 3 right now based on her wheezing. She cannot tolerate the mask well with use a mouthpiece for her she still refuses. A lengthy discussion with the patient with family members present the risk of going home including the fact that she could stop breathing and and she understands that. She will be given a dose of Augm entin here and treated with Augmentin and prednisone. Emphasized need further follow-up with her family doctor tomorrow if she is not better and return immediately if she gets worse patient understands risks of going home alert and oriented x4 at this time family members were present the patient has chosen to leave the facility against medical advice. The relevant issues have been reviewed and discussed with the patient and family at the bedside. At the time of this assessment there is no indication for involuntary commitment. The patient is alert, oriented, and able to express clearly their reasoning for not wanting to remain in the emergency department for further treatment. The patient is not clinically psychotic, intoxicated, and denies and suicidal ideation. - Vital Signs Vital signs: Temp Pulse Resp BP Pulse Ox 97.5 F 95 24 H 164/87 H 99 08/24/19 19:30 08/24/19 19:30 08/24/19 19:30 08/24/19 19:30 08/24/19 19:30 - Laboratory Result Diagrams: 08/24/19 21:05 08/24/19 21:05 Laboratory results interpreted by me: 08/24/19 08/24/19 21:05 21:05 RBC 3.54 L Hgb 11.8 L Hct 34.9 L MCV 98 H RDW 14.3 H Potassium 3.3 L Glucose 129 H Total Protein 8.5 H - Diagnostic Test Radiology reviewed: Reports reviewed Discharge - Discharge Clinical Impression: Shortness of breath, Tracheitis Disposition: AGAINST MEDICAL ADVICE Additional Instructions: Dyspnea, Nonspecific You were evaluated for shortness of breath, or dyspnea. Dyspnea has many causes, and some are more serious than others. Sometimes it's impossible to diagnose the cause of dyspnea with the tests that are available on an emergency basis. Based on our evaluation today, you do not need hospitalization now. We found no evidence of pneumonia, collapsed lung, blood clots in the lung, tumors, or heart failure. Causes of non-specific dyspnea can include asthma or bronchospasm, h yperventilation, emotional distress, heart disease, emphysema, fibrosis of the lung, and stiffness of the chest wall. In healthy individuals with a single episode, it's sometimes reasonable to do nothing but wait to see if the problem occurs again. Additional tests used to evaluate dyspnea can include cardiac stress testing, echocardiography, pulmonary function testing, CAT scan of the chest, bronchoscopy or pulmonary biopsy. Return if shortness of breath persists or worsens, or if you develop chest pain, fever, cough, confusion, or fainting. Please review the discharge instructions, they will tell you about your disease/injury and what you need to return to the ED for Return to the ED if you feel worse or can follow-up with your family doctor BASED ON MY EVALUATION, I STRONGLY RECOMMEND THAT YOU STAY IN THE HOSPITAL FOR FURTHER EVALUATION AND TREATMENT. YOU WILL BE LEAVING THE HOSPITAL AGAINST MEDICAL ADVICE, IT IS EXTREMELY LIKELY THAT YOUR CONDITION WILL GET WORSE, AND YOU MAY SUFFER PERMENANT DISABILITY OR EVEN . IT IS VERY IMPORTANT THAT YOU FOLLOWUP WITH YOUR FAMILY DOCTOR OR IN THE CLINIC TOMORROW . YOU ARE WELCOME TO RETURN TO THE ED AT ANYTIME IF YOU WANT TO BE RE-EVALUATED OR IF YOU GET WORSE Do not hesitate to call 911 if your condition gets worse Stay on a soft diet for 2 to 3 days Your blood pressure was elevated today needs to be rechecked again in 1 to 2 weeks to determine if need to be on medication or have your medications adjusted. Untreated hypertension can cause heart attack stroke and kidney failure Your sugar was elevated today and needs to be rechecked again in 2 weeks Prescriptions: Amox Tr/Potassium Clavulanate [Augmentin 400-57 mg/5 mL Suspension] 5 ml PO TID #105 ml Prednisolone [Prelone 15mg/5ml] 15 mg PO BID #30 ml Forms: Elevated Blood Pressure Referrals: LISA URRUTIA MD [Primary Care Provider] - Follow up as needed
[2019-08-24 21:54] LABS: ABSOLUTE LYMPHOCYTES (AUTO) 2.2 10^3/uL (0.5-4.7); ABSOLUTE MONOCYTES (AUTO) 0.4 10^3/uL (0.1-1.4); ABSOLUTE NEUT (AUTO) 4.7 10^3/uL (1.7-8.2); BASOPHILS % (AUTO) 0.2 % (0-2); EOSINOPHILS % (AUTO) 0.3 % (0-6); HEMATOCRIT 34.9 % (36.0-47.0); HEMOGLOBIN 11.8 g/dL (12.0-15.5); LYMPHOCYTES % (AUTO) 30.2 % (13-45); MEAN CORPUSCULAR HEMOGLOBIN 33.4 pg (27.0-33.4); MEAN CORPUSCULAR VOLUME 98 fl (80-97); PLATELET COUNT 318 10^3/uL (150-450); RED BLOOD COUNT 3.54 10^6/uL (3.72-5.28); RED CELL DISTRIBUTION WIDTH 14.3 % (11.5-14.0); SEGMENTED NEUTROPHILS % (AUTO) 64.3 % (42-78); TOTAL CELLS COUNTED % (AUTO) 100 %; WHITE BLOOD COUNT 7.3 10^3/uL (4.0-10.5)
[2019-08-24 22:13] LABS: ALBUMIN 4.5 g/dL (3.5-5.0); ALKALINE PHOSPHATASE 89 U/L (38-126); ANION GAP 15 (5-19); ASPARTATE AMINO TRANSFERASE 33 U/L (14-36); BILIRUBIN,DIRECT 0.3 mg/dL (0.0-0.4); BILIRUBIN,TOTAL 0.3 mg/dL (0.2-1.3); BLOOD UREA NITROGEN 20 mg/dL (7-20); CALCIUM 9.6 mg/dL (8.4-10.2); CARBON DIOXIDE 22 mmol/L (22-30); CHLORIDE 104 mmol/L (98-107); GLUCOSE 129 mg/dL (75-110); POTASSIUM 3.3 mmol/L (3.6-5.0); TOTAL PROTEIN 8.5 g/dL (6.3-8.2)
--- NOTE | 2019-08-24 22:22 | RADIOLOGY REPORT (SQ) ---
Chest single view on 08/24/2019 at 9:59 PM CLINICAL INDICATION: Shortness of breath COMPARISON: None FINDINGS: The lungs are clear. Mild vascular calcification is noted in the aorta. Cardiac, hilar and mediastinal contours are within normal limits. Pulmonary vascularity is within normal limits. No bony abnormality is noted. IMPRESSION: No active disease.
[2019-08-24] MEDS ORDERED: AMOXICILLIN TR/POT CLAVULANATE ES 600-42.9 MG/5 ML 75 ML PO ONE (22:32)
[2019-08-24] MEDS ORDERED: POTASSIUM CHLORIDE 20 MEQ PACKET PO ONE (22:33)
[2019-08-24 22:52] VITALS: BP 150/76
[2019-08-24] MEDS ORDERED: AMOXICILLIN TR/POT CLAVULANATE ES 600-42.9 MG/5 ML 75 ML ONE (22:53)
== END 2019-08-24 23:12 | disposition left against medical advice (07) ==
LOC: ER 19:25
DX: J04.10 Acute tracheitis without obstruction (principal); R06.02 Shortness of breath; R06.00 Dyspnea, unspecified; R06.2 Wheezing; F17.200 Nicotine dependence, unspecified, uncomplicated; I10 Essential (primary) hypertension; Z88.6 Allergy status to analgesic agent
CPT/HCPCS: 94640 ×2; 99285; 96372; 36415; 85025; 80053; 71045; 70360; J1100; A9270; J3490 ×2